=== PATIENT | male | born 1980 | race Caucasian/White ===

== ENCOUNTER 2019-10-15 12:39 | Emergency (ER) | payer MEDICAID ==
[~2019-10-15] VITALS: Ht 193 cm; Wt 88.1 kg
[2019-10-15 12:54] VITALS: BP 126/74
--- NOTE | 2019-10-15 12:57 | NUR ---
AMBULATES BACK TO THE LOBBY
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
[2019-10-15 14:30] VITALS: BP 126/74
--- NOTE | 2019-10-15 14:32 | NUR ---
Patient discharged with v/s stable. Written and verbal after care instructions given and explained regarding cellulitis. Patient alert, oriented and verbalized understanding of instructions. Ambulatory with steady gait. All questions addressed prior to discharge. ID band removed. Patient advised to follow up with PMD. Rx of cephalexin, norco and bacitracin given. Patient educated on indication of medication including possible reaction and side effects. Opportunity to ask questions provided and answered.
== END 2019-10-15 14:32 | disposition home or self-care (01) ==
LOC: MED 12:39
DX: S01.501A Unspecified open wound of lip, initial encounter (principal); S01.80XA Unspecified open wound of other part of head, initial encounter; L03.211 Cellulitis of face; K13.0 Diseases of lips; F17.200 Nicotine dependence, unspecified, uncomplicated; Y08.89XA Assault by other specified means, initial encounter; Y93.89 Activity, other specified; Y92.89 Other specified places as the place of occurrence of the external cause; Y99.8 Other external cause status
CPT/HCPCS: 99283